=== PATIENT | male | born 1980 | race African-American/Black ===

== ENCOUNTER 2018-01-16 23:43 | Emergency (ER) | payer SELFPAY ==
[~2018-01-16] VITALS: Ht 177.8 cm; Wt 91.0 kg
[2018-01-17] MEDS ORDERED: IBUPROFEN 600MG TABLET PO ONE (02:30)
[2018-01-17 04:32] VITALS: BP 132/84
== END 2018-01-17 04:32 | disposition home or self-care (01) ==
LOC: ER 23:43
DX: K04.7 Periapical abscess without sinus (principal); Z59.0 Homelessness
CPT/HCPCS: 99283